=== PATIENT | male | born 1980 | race Caucasian/White ===

== ENCOUNTER 2021-04-03 17:29 | Observation (INO) | payer MEDICAID, SELFPAY ==
[2021-04-03 17:31] VITALS: BP 144/74; PULSE 95; RESP 15; TEMP 37.2; O2SAT 100; BMI 20.6
--- NOTE | 2021-04-03 19:09 | EX.ED.SAOD ---
HPI History of Present Illness Chief Complaint: Substance Abuse Detail of Chief Complaint: Patient requesting detox from opiates Informant: patient Narrative Narrative: Patient presents to the emergency department requesting detox from opiates. Patient last used fentanyl on April 01 by injecting. Patient had been on Suboxone for 10 years and was trying to get off Suboxone but was having withdrawal symptoms that were severe. Patient complains of feeling sweaty and having chills and stating that he cannot sleep. Patient admits to marijuana use. He denies alcohol use. Denies feeling suicidal or homicidal. Prior similar symptoms: Yes PFSH [facility] Medical History (Updated 04/03/21 @ 20:[address] Serafin Gill, DO) Anxiety Depression Smoker Substance abuse Home Medications buprenorphine-naloxone 0.5 film SUBLINGUAL DAILY 04/03/21 [History Last Taken 03/11/21] Allergy/AdvReac Type Severity Reaction Status Date / Time No Known Allergies Allergy Verified 04/03/21 17:30 Social History Smoking Status: Current every day smoker tobacco type: cigarettes ROS ROS ED Constitutional Constitutional ED: Reports systems reviewed and no addt'l complaints, except as documented, chills and sweats; Denies body ache(s) or change in weight Eyes Eyes: Denies acute decrease in peripheral vision, change in vision, double vision or loss of vision ENT ENT ED: Reports none; Denies ear pain, lip swelling, loss taste/smell, neck pain, otalgia or sore throat Cardiovascular Cardiovascular: Reports none; Denies abdominal pain, chest pain with activity, leg edema, lightheadedness, palpitations, rapid heart rate or syncope Respiratory/Chest Respiratory/Chest: Reports none; Denies change in mental status, dry cough, dyspnea, hemoptysis, shortness of breath at rest or shortness of breath with exertion Gastrointestinal Gastrointestinal: Reports none and nausea; Denies abdominal pain, change in stool character, diarrhea, hematemesis, hematochezia, melena, rectal bleeding or vomiting Genitourinary Genitourinary ED: Reports none; Denies abdominal discomfort, anuria, dysuria, genital pain or polyuria Musculoskeletal Musculoskeletal: Reports none; Denies arthralgias, back pain, difficulty walking, extremity pain, muscle weakness or myalgias Integumentary Reports none; Denies abscess or rash Neurologic Neurologic: Reports none; Denies abnormal gait, confusion, focal weakness, frequent falls, headache(s), loss of vision, numbness, paresthesias, radicular pain, vertigo or weakness Psychiatric Psychiatric: Reports systems reviewed and no addt'l complaints, except as documented and none; Denies behavioral changes, confusion, difficulty concentrating, hallucinations, suicidal ideation, tactile hallucinations or visual hallucinations Endocrine Endocrinology: Denies none, cold intolerance, excessive sweating, fatigue or heat intolerance Hematologic/Lymphatic Hematologic/Lymphatic: Reports none; Denies anemia, easy bleeding or easy bruising Allergic/Immunologic Allergic/Immunologic ED: Denies as per HPI, none, lip swelling, mouth swelling, throat swelling, tongue swelling or hives EXAM Physical Exam Const Vital Signs: 04/03/21 17:31 04/03/21 19:24 Temperature 99.0 F Temperature Source Temporal Pulse Rate 95 60 Respiratory Rate 15 18 Blood Pressure 144/74 H 131/86 H Blood Pressure Mean 97 101 Pulse Ox 100 97 Oxygen Delivery Method Room Air Room Air Positive well nourished and well developed General Appearance ED: well developed and NAD HEENT Reports TM's clear and moist mucous membranes normocephalic and atraumatic; Negative for trauma or tenderness Tympanic Membrane ED: Yes TM's clear Eyes PERRL and EOMs intact bilaterally General Eye ED: Negative for pale conjunctiva or scleral icterus Neck no lymphadenopathy, supple and no JVD General: Negative for tenderness Chest Wall inspection of chest normal and palpation of chest normal Chest: Negative for tenderness Resp normal respiratory effort and clear to auscultation bilaterally Effort and Inspection: Negative for respiratory distress or pain with movement Auscultation: Negative for rhonchi, wheezes or diminished lung sounds Cardio regular rate, regular rhythm, S1 normal heart sound, S2 normal heart sound and no murmurs Peripheral Pulses: pulses 2+ throughout GI normal to inspection, nondistended, normoactive bowel sounds, soft to palpation, non-tender, non-distended and no masses Back/Spine no CVA tenderness and no thoracic nor lumbar tenderness Extremity normal to inspection General Extremety ED: Negative for edema General Extremity: Negative for edema Neuro oriented x3, CN's II-XII intact bilaterally, no sensory deficits noted and gait normal Sensorium / Orientation: awake, alert, oriented to person, oriented to place and oriented to time Motor Exam: strength 5/5 throughout and strength abnormal Psych mental status grossly normal Skin no rashes or lesions noted and no wounds MDM MDM MDM Narrative Medical decision making narrative: Case will be discussed with hospitalist to evaluate for admission for opiate withdrawal and request for detox Lab Data Attestation: I reviewed the patient's lab results. Labs: Laboratory Results - last 24 hr 04/03/21 04/03/21 04/03/21 19:27 19:27 19:27 WBC 8.4 RBC 4.12 L Hgb 13.5 Hct 39.7 L MCV 96.4 H MCH 32.8 H MCHC 34.0 RDW Std Deviation 46.5 H RDW Coeff of Linda 13.2 Plt Count 350 MPV 9.6 Immature Gran % (Auto) 0.400 Neut % (Auto) 76.7 H Lymph % (Auto) 16.6 L [place] % (Auto) 5.1 Eos % (Auto) 0.7 Baso % (Auto) 0.5 Absolute Neuts (auto) 6.4 Absolute Lymphs (auto) 1.39 Nucleated RBC % 0 Sodium 140 Potassium 3.9 Chloride 107 Carbon Dioxide 27.0 Anion Gap 6 BUN 7 Creatinine 0.60 L Estim Creat Clear Calc 155.56 Est GFR (MDRD) Af Amer 190 Est GFR (MDRD) Non-Af 157 BUN/Creatinine Ratio 11.6 Glucose 100 Calcium 9.0 Total Bilirubin 0.60 AST 17 ALT 28 Alkaline Phosphatase 64 Total Protein 8.2 Albumin 4.3 Globulin 3.9 Albumin/Globulin Ratio 1.1 Ethyl Alcohol 3.0 Discharge Plan Triage Chief Complaint: Substance Abuse ED Provider: Serafin Gill Dx/Rx/DC Orders Clinical Impression: Opiate withdrawal, Desire for detoxification Prescriptions: No Action buprenorphine-naloxone 8-2 mg film 0.5 film sublingual DAILY RF: 0 Primary Care Provider: Care Physician,No Primary Referrals: Care Physician,No Primary [Primary Care Provider] - Disposition Disposition: Acute Care [facility]
[2021-04-03] MEDS: Ondansetron 4 MG/2 ML Vial IV (19:19)
[2021-04-03 19:24] VITALS: BP 131/86; PULSE 60; RESP 18; O2SAT 97
--- NOTE | 2021-04-03 19:26 | CM.ED ---
GUILLAUME Note Referral Source: Case Find Reason for Referral: RAMP admission SW met with patient in his room. Patient prefers to be called Vj. He reports his drugs of choice are fentanyl and heroin. Patient said he last used heroin 10 years ago and used at most a couple of grams a day. Patient said that he has no idea how much fentayl he used but stated I overdosed 2 times'. Patient reports he last used fentanyl on 04/01/21. He reports that his aunt is a counselor at [facility] in [place] and wanted him to come to the program. Patient said that he is linked with [facility]. Patient was advised of the [facility] program rules including personal items locked up, no phone and no visitors and patient verbalized understanding. Patient said that he was advised he would follow up with [facility]. Patient voices no other issues or concerns at this time. SW called [facility] and spoke to Fredy. SW made referral to [facility] regarding patient. Staff from [facility] will follow up in the morning. Plan: RAMP admission Mercedes DIAMOND
[2021-04-03] MEDS: 0.9% Normal Saline 1,000 ML 150 ML IV (19:30)
[2021-04-03 19:34] LABS: Absolute Lymphocyte Count 1.39 X10^3/uL (0.83-4.51); Absolute Neutrophil Count 6.4 X10^3/uL (2.0-7.7); Basophil# 0.04 X10^3/uL; Basophil% 0.5 % (0-1); Eosinophil# 0.06 X10^3/uL; Eosinophils% 0.7 % (0-5); Hematocrit 39.7 % (40-54); Hemoglobin 13.5 g/dL (13.0-16.5); Lymphocyte # 1.39 X10^3/ul (0.83-4.51); Lymphocyte % 16.6 % (19-41); Mean Corpuscular Hgb 32.8 pg (27.0-32.0); Mean Corpuscular Volume 96.4 fL (80-94); Mean Platelet Vol. 9.6 fl (6.2-12.0); Monocyte# 0.43 X10^3/uL; Monocyte% 5.1 % (0-10); NRBC Flagged by Analyzer 0 % (0-5); Neutrophil # 6.42 X10^3/uL (2.7-7.7); Neutrophil % 76.7 % (47-70); Platelet Count 350 K/mm3 (150-450); RBC Distribution Width CV 13.2 % (11.6-14.6); RBC Distribution Width SD 46.5 fl (35.1-43.9); Red Blood Count 4.12 M/mm3 (4.6-6.2); White Blood Count 8.4 K/mm3 (4.4-11.0)
[2021-04-03 19:50] LABS: ALB/GLOB Ratio 1.1 RATIO (0.9-2.4); AST(SGOT) 17 U/L (15-37); Alanine Aminotransfer ALT/SGPT 28 U/L (16-61); Albumin, Serum 4.3 g/dL (3.2-5.0); Alkaline Phosphatase 64 U/L (45-117); Anion Gap 6 (5-15); BUN 7 mg/dL (7-18); BUN/Creat Ratio 11.6 RATIO (10-20); Chloride 107 mmol/L (98-107); EST Glomerular Filtration Rate 157 mL/min (>60); Est Glom Filt Rate - Afr Amer 190 mL/min (>60); Estimated Creatinine Clearance 155.56 ml/min; Globulin 3.9 g/dL (2.2-4.2); Glucose 100 mg/dL (74-106); Potassium 3.9 mmol/L (3.5-5.1); Protein, Total 8.2 g/dL (6.4-8.2); Sodium Level 140 mmol/L (136-145)
--- NOTE | 2021-04-03 20:38 | HP.PCM_ITS ---
Documented by User: KAMRYN Taylor 04/03/21 20:49 HPI - General General Date of Admission: 04/03/21 HPI Narrative SANKET BROOKS, is a 41 M who presents for detoxification from opioids. Patient reports that he has been a user for over 10 years and most recently injected fentanyl on 04/01/2021. Patient reports diaphoresis, tremors, insomnia, nausea. Patient denies fever, chills, shortness of breath, vomiting, diarrhea, constipation. [facility] Medical History Anxiety Depression Smoker Substance abuse Home Medications buprenorphine-naloxone 0.5 film SUBLINGUAL DAILY 04/03/21 [History Last Taken 03/11/21] Allergy/AdvReac Type Severity Reaction Status Date / Time No Known Allergies Allergy Verified 04/03/21 17:30 Family History (Updated 04/03/21 @ 20:42 by KAMRYN Taylor) Mother No problems noted. Father No problems noted. Social History (Updated 04/03/21 @ 20:42 by KAMRYN Taylor) Smoking Status: Current every day smoker tobacco type: cigarettes alcohol intake: current alcohol intake frequency: a few times a month substance use type: opiates ROS Constitutional Constitutional: Reports difficulty sleeping and malaise; Denies anorexia, chills, fatigue or fever(s) Cardiovascular Cardiovascular: Denies chest pain, edema or palpitations Respiratory/Chest Respiratory/Chest: Denies cough, shortness of breath at rest or shortness of breath with exertion Gastrointestinal Gastrointestinal: Reports nausea; Denies abdominal pain, constipation, diarrhea or vomiting Genitourinary Genitourinary: Denies dysuria Musculoskeletal Musculoskeletal: Denies back pain or extremity pain Integumentary Integumentary: Denies dry skin Neurologic Neurologic: Reports tremor(s); Denies abnormal gait, abnormal speech, confusion or lack of coordination Hematologic/Lymphatic Hematologic/Lymphatic: Denies easy bleeding or easy bruising Vital Signs Vital Signs Vital Signs: 04/03/21 17:31 04/03/21 19:24 Temperature 99.0 F Temperature Source Temporal Pulse Rate 95 60 Respiratory Rate 15 18 Blood Pressure 144/74 H 131/86 H Blood Pressure Mean 97 101 Pulse Ox 100 97 Oxygen Delivery Method Room Air Room Air Weight Weight: 148 lb 2.41 oz Body Mass Index (BMI) 20.6 Physical Exam Const alert and oriented x3 General Appearance: cooperative HEENT normocephalic and head/scalp atraumatic Eyes conjunctivae normal and no scleral icterus Neck supple and no JVD General: trachea midline Resp normal respiratory effort, normal air movement and clear to auscultation bilaterally Cardio regular rate, regular rhythm, S1 normal heart sound and S2 normal heart sound GI normal to inspection, nondistended, normoactive bowel sounds, soft to palpation and non-tender Extremity normal capillary refill and no clubbing, cyanosis or edema General Extremity: no tenderness to palpation of joints or extremities Skin General Skin Exam: no breakdown and turgor normal Lesions: no lesions Rashes: no rashes Neuro no focal motor deficits, no sensory deficits noted and gait normal Motor Exam: tremor Type: Positive for resting (Withdrawal from opioids) Positive for bilateral upper extremity Psych thought process normal, cooperative and affect normal Appearance: appropriate Results Lab / Micro Data Result Diagrams: 04/03/21 19:27 04/03/21 19:27 Labs: Laboratory Results - last 24 hr 04/03/21 04/03/21 04/03/21 19:27 19:27 19:27 WBC 8.4 RBC 4.12 L Hgb 13.5 Hct 39.7 L MCV 96.4 H MCH 32.8 H MCHC 34.0 RDW Std Deviation 46.5 H RDW Coeff of Linda 13.2 Plt Count 350 MPV 9.6 Immature Gran % (Auto) 0.400 Neut % (Auto) 76.7 H Lymph % (Auto) 16.6 L [place] % (Auto) 5.1 Eos % (Auto) 0.7 Baso % (Auto) 0.5 Absolute Neuts (auto) 6.4 Absolute Lymphs (auto) 1.39 Nucleated RBC % 0 Sodium 140 Potassium 3.9 Chloride 107 Carbon Dioxide 27.0 Anion Gap 6 BUN 7 Creatinine 0.60 L Estim Creat Clear Calc 155.56 Est GFR (MDRD) Af Amer 190 Est GFR (MDRD) Non-Af 157 BUN/Creatinine Ratio 11.6 Glucose 100 Calcium 9.0 Total Bilirubin 0.60 AST 17 ALT 28 Alkaline Phosphatase 64 Total Protein 8.2 Albumin 4.3 Globulin 3.9 Albumin/Globulin Ratio 1.1 Ur Drug Screen Comment Ethyl Alcohol 3.0 04/03/21 20:15 WBC RBC Hgb Hct MCV MCH MCHC RDW Std Deviation RDW Coeff of Linda Plt Count MPV Immature Gran % (Auto) Neut % (Auto) Lymph % (Auto) [place] % (Auto) Eos % (Auto) Baso % (Auto) Absolute Neuts (auto) Absolute Lymphs (auto) Nucleated RBC % Sodium Potassium Chloride Carbon Dioxide Anion Gap BUN Creatinine Estim Creat Clear Calc Est GFR (MDRD) Af Amer Est GFR (MDRD) Non-Af BUN/Creatinine Ratio Glucose Calcium Total Bilirubin AST ALT Alkaline Phosphatase Total Protein Albumin Globulin Albumin/Globulin Ratio Ur Drug Screen Comment Ethyl Alcohol Assessment & Plan Assessment/Plan (1) Desire for detoxification: (2) Opiate withdrawal: (3) Tobacco abuse: PLAN: 1. Opiate withdrawal -Admit to [facility] for participation in the ramp program -Buprenorphine taper ordered along with supportive meds for withdrawal symptoms -Oxygen per protocol -Vital signs per protocol -Patient activity as tolerated -Case management consulted for coordination with 180 for outpatient follow-up -Regular diet 2. Desire for detoxification -See #1 3. Tobacco abuse -NicoDerm patch ordered DVT prophylaxis-no pharmacological prophylaxis indicated This patient was seen by KAMRYN Taylor under the supervision of Dr. Painter. Documented by User: Dr. Dario Painter MD 04/04/21 01:09 HPI - General General Date of Admission: 04/03/21 [facility] Medical History Anxiety Depression Smoker Substance abuse Home Medications buprenorphine-naloxone 0.5 film SUBLINGUAL DAILY 04/03/21 [History Last Taken 03/11/21] Allergy/AdvReac Type Severity Reaction Status Date / Time No Known Allergies Allergy Verified 04/03/21 17:30 Family History (Updated 04/03/21 @ 20:42 by Darlyn Garcia NP-C) Mother No problems noted. Father No problems noted. Social History (Updated 04/03/21 @ 20:42 by Darlyn Garcia NP-C) Smoking Status: Current every day smoker tobacco type: cigarettes alcohol intake: current alcohol intake frequency: a few times a month substance use type: opiates Results Lab / Micro Data Result Diagrams: 04/03/21 19:27 04/03/21 19:27 Charges/Coding Addendum Addendum: Patient seen and examined independently by myself and agree with above assessment plan.
[2021-04-03 20:40] LABS: Amphetamine Urine VISTA NEGATIVE (<1000 ng/mL); Barbiturate Urine VISTA NEGATIVE (< 200 ng/mL); Benzodiazepine Urine VISTA NEGATIVE (< 200 ng/mL); Cocaine Urine VISTA NEGATIVE (< 300 ng/mL); Ecstacy Urine VISTA NEGATIVE (< 500 ng/mL); Methadone Urine VISTA NEGATIVE (< 300 ng/mL); PCP Urine VISTA NEGATIVE (< 25 ng/mL); THC Urine VISTA POSITIVE (< 50 ng/mL); Vista UDS pH Range 7
[2021-04-03 21:06] VITALS: BMI 20.7
[2021-04-03 21:11] VITALS: BP 119/75; PULSE 73; RESP 20; TEMP 36.8; O2SAT 99
[2021-04-03] MEDS: Gabapentin 300 MG Capsule PO (22:07)
[2021-04-03] MEDS: Buprenorphine HCl 2 MG TAB.SUBL SL (22:07)
[2021-04-04 00:39] VITALS: O2SAT 98
[2021-04-04] MEDS: cloNIDine HCl 0.1 MG Tablet PO ×2 (02:39→21:26)
[2021-04-04 03:15] VITALS: BP 123/77; PULSE 70; RESP 16; TEMP 36.7; O2SAT 97
[2021-04-04] MEDS: Buprenorphine HCl 2 MG TAB.SUBL SL ×3 (06:03→21:26)
[2021-04-04 07:58] VITALS: BP 110/74; PULSE 64; RESP 14; TEMP 36.9; O2SAT 98
[2021-04-04] MEDS: hydrOXYzine PAM 25 MG Capsule 50 MG PO (08:02)
[2021-04-04 09:25] VITALS: O2SAT 98
--- NOTE | 2021-04-04 10:22 | ADDICTION ---
This customs entry writer met with PT to conduct ASAM, MSE, DUDIT assessments and to plan for d/c. All assessments completed, faxed to [facility] and placed in PT chart. PT requesting referral to [address] [place] [address]. REferral made. THis customs entry writer will coordinate with PT and [facility] for admit.
--- NOTE | 2021-04-04 13:13 | PCM.PN.HOSP ---
Subjective Subjective Patient admitted with acute opioid withdrawal. Patient reports using fentanyl, recently injected 04/01/2021. As withdrawal symptoms of diaphoresis tremors, insomnia and nausea. He claims currently uses opioids/fentanyl by snorting. Objective Data Objective Data Vital Signs: Vital Signs Temp Pulse Resp BP Pulse Ox 98.5 F 64 14 110/74 98 04/04/21 07:58 04/04/21 07:58 04/04/21 07:58 04/04/21 07:58 04/04/21 09:25 Oxygen Delivery Method Room Air Weight: 149 lb 0.52 oz Body Mass Index (BMI) 20.7 Intake & Output: Intake and Output for Last 24 Hours 04/02/21 04/03/21 04/04/21 23:59 23:59 23:59 Intake Total 1500 / 1500 Balance 1500 / 1500 Lab / Micro Data Result Diagrams: 04/03/21 19:27 04/03/21 19:27 Labs: Laboratory Results - last 24 hr 04/03/21 04/03/21 04/03/21 19:27 19:27 19:27 WBC 8.4 RBC 4.12 L Hgb 13.5 Hct 39.7 L MCV 96.4 H MCH 32.8 H MCHC 34.0 RDW Std Deviation 46.5 H RDW Coeff of Linda 13.2 Plt Count 350 MPV 9.6 Immature Gran % (Auto) 0.400 Neut % (Auto) 76.7 H Lymph % (Auto) 16.6 L [place] % (Auto) 5.1 Eos % (Auto) 0.7 Baso % (Auto) 0.5 Absolute Neuts (auto) 6.4 Absolute Lymphs (auto) 1.39 Nucleated RBC % 0 Sodium 140 Potassium 3.9 Chloride 107 Carbon Dioxide 27.0 Anion Gap 6 BUN 7 Creatinine 0.60 L Estim Creat Clear Calc 155.56 Est GFR (MDRD) Af Amer 190 Est GFR (MDRD) Non-Af 157 BUN/Creatinine Ratio 11.6 Glucose 100 Calcium 9.0 Total Bilirubin 0.60 AST 17 ALT 28 Alkaline Phosphatase 64 Total Protein 8.2 Albumin 4.3 Globulin 3.9 Albumin/Globulin Ratio 1.1 Urine Opiates Screen Urine Methadone Screen Ur Barbiturates Screen Ur Phencyclidine Scrn Ur Amphetamines Screen U Methamphetamin-MDMA U Benzodiazepines Scrn Urine Cocaine Screen U Cannabinoids Screen Ur Drug Screen Comment Ethyl Alcohol 3.0 04/03/21 20:15 WBC RBC Hgb Hct MCV MCH MCHC RDW Std Deviation RDW Coeff of Linda Plt Count MPV Immature Gran % (Auto) Neut % (Auto) Lymph % (Auto) [place] % (Auto) Eos % (Auto) Baso % (Auto) Absolute Neuts (auto) Absolute Lymphs (auto) Nucleated RBC % Sodium Potassium Chloride Carbon Dioxide Anion Gap BUN Creatinine Estim Creat Clear Calc Est GFR (MDRD) Af Amer Est GFR (MDRD) Non-Af BUN/Creatinine Ratio Glucose Calcium Total Bilirubin AST ALT Alkaline Phosphatase Total Protein Albumin Globulin Albumin/Globulin Ratio Urine Opiates Screen NEGATIVE Urine Methadone Screen NEGATIVE Ur Barbiturates Screen NEGATIVE Ur Phencyclidine Scrn NEGATIVE Ur Amphetamines Screen NEGATIVE U Methamphetamin-MDMA NEGATIVE U Benzodiazepines Scrn NEGATIVE Urine Cocaine Screen NEGATIVE U Cannabinoids Screen POSITIVE H Ur Drug Screen Comment Ethyl Alcohol Physical Exam Narrative Physical exam General: Alert, Oriented x3, Cooperative HEENT: Atraumatic, PERRLA, EOMI, Normocephalic Oral: No Gingival or Mucosal Lesions/ Ulcerations Neck: Supple, No JVD, Negative Carotid Bruits Lungs: Air entry equal in bilateral lung bases. No crepitation/rhonchi Cardiovascular: Regular rate, Regular Rhythm, Normal S1, Normal S2, No murmurs Abdomen: Bowel Sounds Present, Soft, Non Tender, Non-Distended : No renal angle tenderness. No suprapubic tenderness. Extremities: No edema, Capillary Refill Less than 3 Seconds Skin: No rashes, No breakdown Musculoskeletal: No Tenderness to Palpation of Joints or Extremities Neurological: Cranial nerves II-XII grossly intact, Deep Tendon Reflexes 2+/4 and Symmetrical, Neuro grossly intact Psych/Mental Status: Restless and anxious Assessment & Plan Assessment/Plan (1) Opiate withdrawal: PLAN: 1. Acute opioid withdrawal syndrome with chronic opioid use and dependence: Patient is being admitted MedSurg floor. Patient states he relapsed even on Suboxone. Currently on buprenorphine based order set along with other supportive medications. CINA monitoring. 2. Chronic cigarette smoking and nicotine dependence 3. Anxiety and restlessness VTE prophylaxis: Early ambulation encouraged. Charges/Coding Visit Charges Inpatient E&M: 24571 Subs Hosp L2
[2021-04-04 14:23] VITALS: BP 111/69; PULSE 62; RESP 14; TEMP 36.7; O2SAT 96
[2021-04-04] MEDS: traZODone 100 MG Tablet PO (21:26)
[2021-04-04 21:28] VITALS: BP 130/80; PULSE 62; RESP 16; TEMP 36.7; O2SAT 100
[2021-04-05 03:28] VITALS: BP 108/66; PULSE 70; RESP 16; TEMP 36.7; O2SAT 98
[2021-04-05] MEDS: Buprenorphine HCl 2 MG TAB.SUBL SL ×3 (05:01→21:30)
--- NOTE | 2021-04-05 07:26 | PCM.PN.HOSP ---
Subjective Subjective Patient slept good yesterday night. More calm and quiet. Tremors are controlled. Objective Data Objective Data Vital Signs: Vital Signs Temp Pulse Resp BP Pulse Ox 98.0 F 70 16 108/66 98 04/05/21 03:28 04/05/21 03:28 04/05/21 03:28 04/05/21 03:28 04/05/21 03:28 Oxygen Delivery Method Room Air Weight: 149 lb 0.52 oz Body Mass Index (BMI) 20.7 Intake & Output: Intake and Output for Last 24 Hours 04/03/21 04/04/21 04/05/21 23:59 23:59 23:59 Intake Total 1500 / 1900 800 / 800 Balance 1500 / 1900 800 / 800 Lab / Micro Data Result Diagrams: 04/03/21 19:27 04/03/21 19:27 Physical Exam Narrative Physical exam General: Alert, Oriented x3, Cooperative HEENT: Atraumatic, PERRLA, EOMI, Normocephalic Oral: No Gingival or Mucosal Lesions/ Ulcerations Neck: Supple, No JVD, Negative Carotid Bruits Lungs: Air entry equal in bilateral lung bases. No crepitation/rhonchi Cardiovascular: Regular rate, Regular Rhythm, Normal S1, Normal S2, No murmurs Abdomen: Bowel Sounds Present, Soft, Non Tender, Non-Distended : No renal angle tenderness. No suprapubic tenderness. Extremities: No edema, Capillary Refill Less than 3 Seconds Skin: No rashes, No breakdown Musculoskeletal: No Tenderness to Palpation of Joints or Extremities Neurological: Cranial nerves II-XII grossly intact, Deep Tendon Reflexes 2+/4 and Symmetrical, Neuro grossly intact Psych/Mental Status: Normal affect. Assessment & Plan Assessment/Plan (1) Opiate withdrawal: PLAN: 1. Acute opioid withdrawal syndrome with chronic opioid use and dependence: Patient is being admitted MedSurg floor. Patient states he relapsed even on Suboxone. Currently on buprenorphine based order set along with other supportive medications. CINA monitoring. 04/05: Continue home medication regimen. 2. Chronic cigarette smoking and nicotine dependence On nicotine patch. 3. Anxiety and restlessness VTE prophylaxis: Early ambulation encouraged. Charges/Coding Visit Charges Inpatient E&M: 91914 Subs Hosp L2
[2021-04-05 07:35] VITALS: O2SAT 96
[2021-04-05 09:30] VITALS: BP 118/54; PULSE 73; RESP 18; TEMP 36.7; O2SAT 96
--- NOTE | 2021-04-05 10:59 | ADDICTION ---
This singer songwriter met with PT to finalize d/c plan and [facility] to assist with d/c planning and to coordinate admission to [facility]. [facility] and was informed that he seems appropriate and will confirm that he can admit. This singer songwriter will plan for a direct admit to residential treatment for 04/06/21.
[2021-04-05 14:06] VITALS: BP 113/63; PULSE 79; RESP 16; TEMP 36.6; O2SAT 98
[2021-04-05] MEDS: traZODone 100 MG Tablet PO (21:30)
[2021-04-05 21:32] VITALS: BP 106/80; PULSE 74; RESP 16; TEMP 36.8; O2SAT 98
[2021-04-06 06:34] VITALS: BP 111/66; PULSE 75; RESP 18; TEMP 37.1; O2SAT 99
[2021-04-06 08:03] VITALS: O2SAT 98
--- NOTE | 2021-04-06 09:03 | PCM.DC ---
Discharge Instructions Diet Discharge Diet: No restrictions Activity Discharge Activity: Return to Normal Activity and May Not Drive Dressing / Incision Call your doctor if you observe: Fever of 101 or Higher, Coldness, Increased Pain, Numbness or Tingling, Change in Color, Inability to urinate, Inability to have a bowel movement, Shortness of breath, Dizziness, Fainting spells, Swelling in the ankles, Chest pain, Prolonged hiccupping, Increased palpitations (irregular heartbeat), Calf discomfort and Uncontrolled pain Follow Up Care Test Results: Test results from this visit will be discussed in further detail at your follow-up appointment, if applicable. Discharge Plan Admission Admit Date/Time: 04/03/21 20:38 Primary Reason for Your Visit: Acute opioid withdrawal syndrome Attending Provider: Matthew Valdovinos Primary Care Provider: Care Physician,Carmen Primary Discharge Orders/Prescriptions Prescriptions: New nicotine 21 mg/24 hr Patch 24 Hour 21 mg transdermal DAILY Qty: 0 RF: 0 Continued buprenorphine-naloxone 8-2 mg film 0.5 film sublingual DAILY RF: 0 Referrals / Follow Up: Care Physician,No Primary [Primary Care Provider] - Disposition Disposition (needs filled in before D/C Order can be placed): Inpatient Rehab Unit/Facility
--- NOTE | 2021-04-06 09:06 | PCM.DC.SUM ---
Providers Date of Admission: 04/03/21 Primary Care Physician: No Primary Care Phys Reason For Visit: OPIOID DETOX Diagnosis Discharge Diagnosis (1) Opiate withdrawal: Status: Acute Code(s): F11.23 - Opioid dependence with withdrawal Medications at Discharge Home Medications buprenorphine-naloxone 0.5 film SUBLINGUAL DAILY 04/03/21 nicotine 21 mg TRANSDERMAL DAILY #0 ea 04/06/21 Hospital Course Summary of Care Provided Hospital Course: There is a 41-year-old gentleman admitted for acute opioid withdrawal syndrome including anxiety, restlessness, chills, sweating, and insomnia. Patient denied suicidal or homicidal ideation or attempt. P 1. Acute opioid withdrawal syndrome with chronic opioid use and dependence: Patient was admitted [facility] floor. Patient states he relapsed even on Suboxone. Currently on buprenorphine based order set along with other supportive medications. CINA monitoring. Patient symptoms are well controlled. Patient is being transferred to inpatient drug rehab. 2. Chronic cigarette smoking and nicotine dependence On nicotine patch. 3. Anxiety and restlessness VTE prophylaxis: Early ambulation encouraged. Discharge medication reconciliation done. Discharge follow-up instructions completed. Discharge process discussed with the patient and all questions were answered to patient's satisfaction. Total time spent, exact 35 minutes on discharge meds reconciliation, examination, coordination of care with nurses and ancillary staff, review of imaging and blood test and discussion with the patient on follow-up instructions Physical Exam Narrative Physical exam General: Alert, Oriented x3, Cooperative HEENT: Atraumatic, PERRLA, EOMI, Normocephalic Oral: No Gingival or Mucosal Lesions/ Ulcerations Neck: Supple, No JVD, Negative Carotid Bruits Lungs: Air entry equal in bilateral lung bases. No crepitation/rhonchi Cardiovascular: Regular rate, Regular Rhythm, Normal S1, Normal S2, No murmurs Abdomen: Bowel Sounds Present, Soft, Non Tender, Non-Distended : No renal angle tenderness. No suprapubic tenderness. Extremities: No edema, Capillary Refill Less than 3 Seconds Skin: No rashes, No breakdown Musculoskeletal: No Tenderness to Palpation of Joints or Extremities Neurological: Cranial nerves II-XII grossly intact, Deep Tendon Reflexes 2+/4 and Symmetrical, Neuro grossly intact Psych/Mental Status: Normal affect. Weight / BMI Weight Weight: 149 lb 0.52 oz Body Mass Index (BMI) 20.7 ABG / Lab / Microbiology Data Result Diagrams: 04/03/21 19:27 04/03/21 19:27 D/C Instructions Discharge Diet: No restrictions Call your doctor if you observe: Fever of 101 or Higher, Coldness, Increased Pain, Numbness or Tingling, Change in Color, Inability to urinate, Inability to have a bowel movement, Shortness of breath, Dizziness, Fainting spells, Swelling in the ankles, Chest pain, Prolonged hiccupping, Increased palpitations (irregular heartbeat), Calf discomfort and Uncontrolled pain Meaningful Use Info Meaningful Use Diagnoses (Choose all that apply): None applicable Discharge Plan Admission Admit Date/Time: 04/03/21 20:38 Primary Reason for Your Visit: Acute opioid withdrawal syndrome Attending Provider: Matthew Valdovinos Primary Care Provider: Care Physician,Carmen Primary Discharge Orders/Prescriptions Prescriptions: New nicotine 21 mg/24 hr Patch 24 Hour 21 mg transdermal DAILY Qty: 0 RF: 0 Continued buprenorphine-naloxone 8-2 mg film 0.5 film sublingual DAILY RF: 0 Referrals / Follow Up: Care Physician,No Primary [Primary Care Provider] - Disposition Disposition (needs filled in before D/C Order can be placed): Home, Self Care Charges/Coding Visit Charges Inpatient E&M: 90559 Disch Hosp
[2021-04-06] MEDS: Buprenorphine HCl 2 MG TAB.SUBL SL (09:47)
[2021-04-06 09:48] VITALS: BP 131/75; PULSE 84; RESP 18; TEMP 37.2; O2SAT 99
[2021-04-06 09:50] VITALS: PULSE 84
== END 2021-04-06 11:11 | disposition home or self-care (01) | DRG 773 ==
LOC: ED 20:09 → MS3 20:47
PROVIDERS: Admitting Provider Family Medicine; Emergency Provider Emergency Medicine; Visit Provider Internal Medicine
DX: F11.23 Opioid dependence with withdrawal (principal); F17.210 Nicotine dependence, cigarettes, uncomplicated; F41.9 Anxiety disorder, unspecified; F12.90 Cannabis use, unspecified, uncomplicated
CPT/HCPCS: 80053; 80307; 82077; 85025; 96361; 96374; 99218; 99282; 99406; A4216; G0378; J2405